=== PATIENT | male | born 1935 | race African-American/Black ===

== ENCOUNTER 2017-01-25 17:23 | Inpatient (IN) | payer MEDICARE, MEDICAID ==
[2017-01-25 21:40] VITALS: BMI 24.0
--- NOTE | 2017-01-25 21:51 | ULT ---
RIGHT UPPER QUADRANT ULTRASOUND 01/25/17 INDICATION: History of jaundice and elevated bilirubin. FINDINGS: There is prominent intrahepatic biliary ductal dilatation which appears slightly more prominent than seen on the CT examination dated 12/07/16. The common bile duct is within normal limits measuring 4.1 mm. The gallbladder appears within normal limits without sonographic Bautista's sign. The visualized a spects of the pancreas remarkable. There are multiple cysts seen involving the right kidney a seen on the comparison CT. No hydronephrosis is evident. There is some free fluid seen within the abdomen an d pelvis. This appears slightly more pronounced than on the comparison CT in November. IMPRESSION: 1. Worsening moderate intrahepatic biliary ductal dilatation. No extrahepatic biliary dilatation is noted. Gallbladder appeared within normal limits. 2. Nonspecific ascites. Slightly more pronounced than seen on the comparison CT in November 27. 3. Multiple right renal cysts. POS: [facility]
[2017-01-25] MEDS ORDERED: Eucerin (Mineral Oil/Petrolatum,White) 30 gm Jar TOP PRN (22:13)
[2017-01-25] MEDS ORDERED: Nitroglycerin 0.4 MG TAB 1 EACH PO PRN (22:13)
[2017-01-25] MEDS ORDERED: hydrALAZINE 20 MG/ML VIAL SLOW IVP PRN (22:13)
[2017-01-25] MEDS ORDERED: Polyethylene Glycol 3350 17 GM Packet PO PRN (22:13)
[2017-01-25] MEDS ORDERED: Insulin Regular 300 UNITS/3 ML VIAL SC PRN ×2 (22:15)
[2017-01-25] MEDS ORDERED: Dextrose 5% in Water 1,000 ML IV PRN (22:15)
[2017-01-25] MEDS ORDERED: Dextrose 50% Abboject 50 ML SYRINGE SLOW IVP PRN (22:15)
[2017-01-25] MEDS ORDERED: Senokot 8.6 MG TAB PO PRN (22:15)
[2017-01-25] MEDS: Melatonin 3 MG TAB PO PRN (22:39)
[2017-01-25] MEDS: Sodium Chloride 0.9% 1,000 ML IV SCH (22:39)
--- NOTE | 2017-01-25 23:13 | HP ---
DATE OF ADMISSION: 01/25/2017 PRIMARY CARE PHYSICIAN: [facility] in [place]. CHIEF COMPLAINT: Generalized itching. HISTORY OF PRESENT ILLNESS: Patient is a 81-year-old male with hypertension, diabetes mellitus type 2, and chronic kidney disease stage 3, presented to [place] [facility] with above complaints. Jeevan e was transferred to this facility for hospital admission. Over the last 2-3 days, the patient developed generalized itching along with discoloration of urine. His urine was dark. He denies any nausea, vomiting, abdominal pain, fever, chills, or diarrhea. He has on and off constipation. He denies any weight loss. He felt cold on and off. He denies any al cohol use. He takes Tylenol on and off. He denies any drug use. No sick contacts or recent travel reported. In the emergency room, his workup was consistent with abnormal LFTs with total bilirubin of 17 with d irect bilirubin greater than 10, alkaline phosphatase 284, AST 73, ALT of 85. He was transferred to this facility for hospital admission. PAST MEDICAL HISTORY: 1. Hypertension 2. Diabetes mellitus type 2. 3. 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 4. Chronic anemia. 5. Left eye blindness. 6. History of gastrointestinal bleeding. 7. Glaucoma. 8. Gout. 9. Hyperlipidemia. PAST SURGICAL HISTORY: 1. Renal biopsy. 2. Cataract surgery. 3. EGD and colonoscopy. ALLERGIES: CODEINE. CURRENT HOME MEDICATIONS: Patient does not remember any of his home medications. SOCIAL HISTORY: He is currently in [place] at his family's place. Currently lives at home with his family. No current use of smoking, alcohol, or drug use. He has a history of alcoholism in the rem ote past. FAMILY HISTORY: Hypertension and CVA in father. Several other family members with hypertension. REVIEW OF SYSTEMS: The following complete review of systems was negative, unless otherwise mentioned in the HPI or below: Constitutional: Weight loss or gain, ability to conduct usual activities. Sk in: Rash, itching. Eyes: Double vision, pain. ENT/Mouth: Nose bleeding, neck stiffness, pain, te nderness. Cardiovascular: Palpitations, dyspnea on exertion, orthopnea. Respiratory: Shortness of breath, wheezing, cough, hemoptysis, fever or night sweats. Gastrointestinal: Poor appetite, abdom inal pain, heartburn, nausea, vomiting, constipation, or diarrhea. Genitourinary: Urgency, frequenc y, dysuria, nocturia. Musculoskeletal: Pain, swelling. Neurologic/Psychiatric: Anxiety, depressio n. Allergy/Immunologic: Skin rash, bleeding tendency. PHYSICAL EXAMINATION: VITAL SIGNS: On ER arrival, temperature 98.3, respirations 20, pulse 71, blood pressure of 130/72 wi th O2 saturation 98% on room air. GENERAL: A 81-year-old male in no apparent distress. HEENT: Atraumatic, normocephalic. Sclerae is icteric. Moist mucous membranes. No oral lesion. NECK: Supple, no JVD, no carotid bruit. LUNGS: Clear to auscultation bilaterally. No wheezing or rales. HEART: S1, S2 present. Regular rate and rhythm. No murmurs, rubs, or gallops appreciated. ABDOMEN: Soft, nontender, bowel sounds present, no rebound, guarding, no costovertebral angle tender ness. EXTREMITIES: No edema or calf tenderness. NEUROLOGIC: Grossly nonfocal, moves all four extremities. PSYCHIATRY: Alert, awake, oriented x3. SKIN: Warm and dry. LYMPH NODES: No palpable lymph nodes in the neck. PERIPHERAL VASCULAR: Radial pulses palpable bilaterally. MUSCULOSKELETAL: No joint swelling or tenderness. LABORATORY FINDINGS: 1. CBC showed WBC of 1.8 with hemoglobin 11.9, hematocrit 38.8, platelet 133. 2. PT of 16, INR 1.3. 3. Chemistries as discussed above. Bicarbonate was 14 with creatinine 2.64, albumin 3.3. 4. Urinalysis was negative for wbc, bacteria. 5. Lipase was 126. 6. Abdominal ultrasound showed nonspecific ascites with multiple right renal cysts with worsening mo derate intrahepatic biliary ductal duration. Gallbladder was normal. IMPRESSION: 1. Abnormal liver function tests. Patient has significantly elevated direct bilirubin of unclear et iology. We will consult Gastroenterology. Avoid acetaminophen. We will check serology for hepatiti s B and C. The patient denies any drug use. 2. Diabetes mellitus type 2. We will add sliding scale. We will monitor. 3. Hypertension. We will start p.r.n. antihypertensives. Patient does not remember any of his home medications. 4. 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 We will monitor. 5. Metabolic acidosis secondary to renal insufficiency. We will monitor. 6. Hypoalbuminemia secondary to nephrotic-range proteinuria. 7. Anemia, chronic. 8. Chronic leukopenia. 9. Code status: FULL CODE. 10. Surrogate decision maker: The patient makes his own decisions with the help of his family. Plan of care was discussed with the patient and the family at the bedside. They stated understanding .
[2017-01-26 04:51] LABS: #Eosinphils 0.1 thou/uL (0.0-0.7); #Lymphocytes 0.3 thou/uL (1.20-3.40); #Monocytes 0.2 thou/uL (0.11-0.59); #Neutrophils 0.9 thou/uL (1.40-6.50); %Lymphocytes 19.3 % (21.0-51.0); %Monocytes 12.1 % (0.0-10.0); Hematocrit 33.1 % (42.0-52.0); Mean Platelet Volume 10.2 fL (7.4-10.4); Red Blood Cell (RBC) Count 3.92 mill/uL (4.70-6.10); White Blood Cell (WBC) Count 1.5 thou/uL (4.8-10.8)
[2017-01-26 05:02] LABS: ALT (SGPT) 63 U/L (8-55); AST (SGOT) 52 U/L (5-34); Alkaline Phosphatase 258 U/L (40-150); Anion Gap 10 mmol/L (10-20); BUN (Urea Nitrogen) 29 mg/dL (8.4-25.7); Bilirubin, Total 15.8 mg/dL (0.2-1.2); CK (CPK) 53 U/L (30-200); Calc. Creatinine Clearance 23 mL/min (70-130); Calcium 8.9 mg/dL (7.8-10.44); Carbon Dioxide 21 mmol/L (23-31); Chloride 108 mmol/L (98-107); Estimated GFR-MDRD 30; Lipase 125 U/L (8-78); Magnesium 2.3 mg/dL (1.6-2.6); Phosphorus 2.9 mg/dL (2.3-4.7); Protein, Total 6.2 g/dL (5.8-8.1)
[2017-01-26 05:16] LABS: Bilirubin, Direct Greater than 10.0 mg/dL (0.1-0.3)
[2017-01-26] MEDS: Sodium Bicarbonate Tab 325 MG TAB PO SCH ×2 (08:20→20:15)
[2017-01-26] MEDS: Famotidine 20 MG TAB PO SCH (08:20)
[2017-01-26] MEDS: Docusate 100 MG CAP PO SCH ×2 (08:21→20:15)
[2017-01-26] MEDS ORDERED: Famotidine 20 MG TAB PO SCH (09:00)
--- NOTE | 2017-01-26 11:58 | CON ---
DATE OF CONSULTATION: 01/26/2017 HISTORY OF PRESENT ILLNESS: The patient is a 81-year-old -[place] gentleman who was in his [facility] state of health until last few days when he noticed his urine becoming dark. He thought possib ly that he was having blood in his urine and came to seek treatment. He has had no abdominal pain, n o diarrhea or constipation, no weight loss, no nausea or vomiting, no other GI complaints. 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 PAST SURGICAL HISTORY: Includes EGD and colonoscopy by Dr. Sawyer, last being in 2002. ALLERGIES: CODEINE. CURRENT MEDICATIONS: Include hydralazine 50 mg p.o. b.i.d., potassium chloride 20 mEq p.o. b.i.d., L asix 40 mg p.o. b.i.d., and Coreg 25 mg p.o. b.i.d. ALLERGIES: CODEINE. SOCIAL HISTORY: Does not smoke or drink. FAMILY HISTORY: Negative for GI or liver disease. REVIEW OF SYSTEMS: CONSTITUTIONAL: No fever or chills. No weight loss. EYES: No blurred vision o r double vision. He is blind in his left eye. ENT: No sore throat or earaches. CARDIOVASCULAR: N o chest pain or palpitation. PULMONARY: No shortness of breath, cough or wheezing. GASTROINTESTINA L: See above. GENITOURINARY: No hematuria or dysuria. MUSCULOSKELETAL: No joint pain or muscle w eakness. SKIN: No rashes. NEUROLOGIC: No numbness or seizure activity. PHYSICAL EXAMINATION: VITAL SIGNS: Temperature 97.3, pulse 72, respiratory rate 16, and blood pressure 164/73. HEENT: Unremarkable except for whitish cornea in the left eye. CHEST: Clear. CARDIOVASCULAR: Regular rate and rhythm. ABDOMEN: Soft and nontender, without organomegaly or masses. RECTAL: Deferred. EXTREMITIES: Normal. NEUROLOGIC: Nonfocal. LABORATORY DATA AND IMAGING: Shows sodium 135, chloride 108, CO2 21, BUN 29, creatinine 2.50, total bilirubin 15.8, AST 52, ALT 63, alkaline phosphatase 258, albumin 3.0, and lipase 125. Hepatitis ser ology is negative. CBC shows white blood cell count of 1.5, hemoglobin 10.7, hematocrit 33.1 with MC V of 84.3, platelet counts 124,000. Patient underwent an abdominal ultrasound and showed worsening m oderate intrahepatic biliary ductal dilatation and no extrahepatic biliary dilatation. Gallbladder w as seen within normal limits. The common bile duct was measured 4.1 mm. Multiple right renal cysts were noted. There is some nonspecific ascites. The patient underwent an abdominal and pelvic CT on 11/27/2016. This was performed without contrast. This showed stable splenomegaly, bilateral pleural effusions, some mild fluid within the pelvis. ASSESSMENT: 1. Obstructive jaundice - patient seems to have intrahepatic biliary dilatation with no extrahepatic biliary dilatation. 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 Less likely would be worsening intrinsic christiano er disease. 2. Pancytopenia. 3. Chronic renal insufficiency. 4. Membranous glomerulonephritis. RECOMMENDATIONS: 1. MRCP. 2. Tumor markers.
--- NOTE | 2017-01-26 15:39 | PDOC.PN ---
- Subjective Encounter Start Date: 01/26/17 Encounter Start Time: 15:37 Subjective: feels better. no abdominal pain/nausea/vomiting - Objective Resuscitation Status: Resuscitation Status FULL:Full Resuscitation MAR Reviewed: Yes Vital Signs & Weight: Vital Signs (12 hours) Temp Pulse Resp BP BP Pulse Ox 01/26/17 11:20 97.3 F L 62 17 164/73 H 98 01/26/17 08:00 97.7 F 61 14 145/87 H 98 01/26/17 04:00 97.8 F 60 18 151/87 H 98 Weight Weight 148 lb 11.2 oz I&O: 01/25/17 01/26/17 01/27/17 06:59 06:59 06:59 Intake Total 800 Balance 800 Result Diagrams: 01/26/17 04:11 01/26/17 04:11 Additional Labs: Accuchecks 01/26/17 01/26/17 10:53 04:46 POC Glucose 84 109 Laboratory Tests 04/12/16 11/01/16 11/01/16 13:42 10:12 10:12 WBC Plt Count 105 L 73 L Creatinine Total Bilirubin AST 28 ALT 27 Alkaline Phosphatase Lipase TSH 3rd Generation 11/27/16 11/27/16 01/25/17 14:19 14:19 15:04 WBC 2.7 L 1.8 L Plt Count 84 L 133 Creatinine 2.82 H Total Bilirubin 0.8 AST 76 H ALT 73 H Alkaline Phosphatase 147 Lipase 107 H TSH 3rd Generation 01/25/17 01/25/17 01/26/17 15:04 15:04 04:11 WBC Plt Count Creatinine 2.64 H 2.50 H Total Bilirubin 17.0 H 15.8 H AST 73 H 52 H ALT 85 H 63 H Alkaline Phosphatase 284 H 258 H Lipase 126 H 125 H TSH 3rd Generation 01/26/17 01/26/17 04:11 04:11 WBC 1.5 L Plt Count 124 L Creatinine Total Bilirubin AST ALT Alkaline Phosphatase Lipase TSH 3rd Generation 1.5370 Phys Exam - Physical Examination Constitutional: NAD thin looking HEENT: PERRLA, moist MMs, sclera anicteric, oral pharynx no lesions Neck: no nodes, no JVD, supple, full ROM Respiratory: no wheezing, no rales, no rhonchi, clear to auscultation bilateral Cardiovascular: RRR, no significant murmur Gastrointestinal: soft, non-tender, no distention, positive bowel sounds Musculoskeletal: no edema, pulses present Neurological: non-focal, normal sensation, moves all 4 limbs Psychiatric: normal affect, A&O x 3 Skin: no rash Dx/Plan (1) Obstructive jaundice Code(s): K83.8 - OTHER SPECIFIED DISEASES OF BILIARY TRACT Status: Acute (2) Pancytopenia Code(s): D61.818 - OTHER PANCYTOPENIA Status: Acute (3) Malnutrition Code(s): E46 - UNSPECIFIED PROTEIN-CALORIE MALNUTRITION Status: Chronic Qualifiers: Malnutrition type: protein-calorie malnutrition Protein-calorie malnutrition severity: moderate Qualified Code(s): E44.0 - Moderate protein- calorie malnutrition (4) HTN (hypertension) Code(s): I10 - ESSENTIAL (PRIMARY) HYPERTENSION Status: Chronic (5) DM2 (diabetes mellitus, type 2) Status: Chronic (6) CKD (chronic kidney disease) Code(s): N18.9 - CHRONIC KIDNEY DISEASE, UNSPECIFIED Status: Chronic Qualifiers: Chronic kidney disease stage: stage 3 (moderate) Qualified Code(s): N18.3 - Chronic kidney disease, stage 3 (moderate) (7) Membranous glomerulonephritis Code(s): N05.2 - UNSP NEPHRITIC SYNDROME W DIFFUSE MEMBRANOUS GLOMRLNEPH Status: Chronic - Plan PT/OT, nursing home social worker, out of bed/ambulate, DVT proph w/SCDs send for AMA,KEMAR etc. will cuco need MRCP /ercp for intrahepatic jaundice -: ? malignanacy.GI recs requested.apprecitae input. -: hemodynamically stable. -: select home meds as below * . Review of Systems - Review of Systems Constitutional: negative: Fever, Chills, Sweats, Weakness, Malaise, Other Respiratory: negative: Cough, Dry, Shortness of Breath, Hemoptysis, SOB with Excertion, Pleuritic Pain, Sputum, Wheezing Cardiovascular: negative: Chest Pain, Palpitations, Orthopnea, Paroxysmal Noc. Dyspnea, Edema, Light Headedness, Other Gastrointestinal: negative: Nausea, Vomiting, Abdominal Pain, Diarrhea, Constipation, Melena, Hematochezia, Other Genitourinary: negative: Dysuria, Frequency, Incontinence, Hematuria, Retention , Other Musculoskeletal: negative: Neck Pain, Shoulder Pain, Arm Pain, Back Pain, Hand Pain, Leg Pain, Foot Pain, Other Neurological: negative: Weakness, Numbness, Incoordination, Change in Speech, Confusion, Seizures, Other - Medications/Allergies Allergies/Adverse Reactions: Allergies Allergy/AdvReac Type Severity Reaction Status Date / Time codeine Allergy itching Verified 03/23/14 20:47 Medications: Current Medications Dextrose/Water (Dextrose 50%) 25 gm SLOW IVP PRN PRN PRN Reason: Hypoglycemia Docusate Sodium (Colace) 100 mg PO BID [facility] Last Admin: 01/26/17 08:21 Dose: 100 mg Famotidine (Pepcid) 20 mg PO DAILY [facility] Last Admin: 01/26/17 08:20 Dose: 20 mg Glucagon (Glucagon) 1 mg IM PRN PRN PRN Reason: Hypoglycemia Hydralazine HCl (Apresoline) 10 mg SLOW IVP Q4H PRN PRN Reason: SBP Greater Than 180 Dextrose/Water (D5w) 1,000 mls @ 0 mls/hr IV .Q0M PRN; As Directed PRN Reason: Hypoglycemia Sodium Chloride (Normal Saline 0.9%) 1,000 mls @ 50 mls/hr IV .Q20H [facility] Stop: 01/27/17 22:16 Last Admin: 01/25/17 22:39 Dose: 1,000 mls Insulin Human Regular (Humulin R) 0 units SC .MILD SLIDING SCALE PRN PRN Reason: Mild Correctional Scale Insulin Human Regular (Humulin R) 0 units SC .BEDTIME SLIDING SC PRN PRN Reason: Bedtime Correctional Scale Melatonin (Melatonin) 3 mg PO HS PRN PRN Reason: Insomnia Last Admin: 01/25/17 22:39 Dose: 3 mg Mineral Oil/White Petrolatum (Eucerin Cream) 0 gm TOP BIDPRN PRN PRN Reason: Dry Skin Nitroglycerin (Nitrostat) 0.4 mg PO Q5MIN PRN PRN Reason: Chest Pain Polyethylene Glycol (Miralax) 17 gm PO DAILY PRN PRN Reason: Constipation Senna (Senokot) 2 tab PO HSPRN PRN PRN Reason: Constipation Sodium Bicarbonate (Bicarbonate, Sodium) 650 mg PO BID [facility] Last Admin: 01/26/17 08:20 Dose: 650 mg Sodium Chloride (Flush - Normal Saline) 10 ml IVF PRN PRN PRN Reason: Saline Flush
[2017-01-26] MEDS: Sodium Chloride 0.9% 1,000 ML IV SCH (16:41)
--- NOTE | 2017-01-26 18:08 | MRI ---
MR OF THE ABDOMEN WITHOUT IV CONTRAST: Indication: Prominent intrahepatic biliary ductal dilatation with abdominal pain and elevated LFTs. IMPRESSION: There is a T2 isointense, T1 hypointense mass centered within the caudate lobe extending into the tyron tral aspect of the right hepatic lobe, best seen on Image 15 of series 15, and Image 14 of Series 14 measuring 3.1 x 5.3 cm, suspicious for a Klatskin type tumor. This is causing severe truncation of th e intrahepatic biliary confluence and intrahepatic biliary ductal dilatation. The visualized common b ile duct is of normal caliber. The main pancreatic duct is upper limits of normal. There is prominent splenomegaly. There is bilateral renal cysts. There is moderate ascites. No pathologically enlarged lymph nodes are evident. There is prominent gallbladder wall thickening. The gallbladder is decompres sed, however. There are a moderate right and small left pleural effusions. IMPRESSION: 1. Irregular, T2 isointense T1 hypointense mass involving the caudate lobe and central aspect of the right hepatic lobe causing severe obstruction of the confluence of the right and left intrahepatic bi liary ducts suspicious for a Klatskin tumor. 2. Moderate ascites. 3. Splenomegaly. 4. Bilateral renal cysts. 5. Moderate right and small left pleural effusion. POS: [facility]
[2017-01-26] MEDS: Melatonin 3 MG TAB PO PRN (20:15)
[2017-01-27 05:44] LABS: #Eosinphils 0.1 thou/uL (0.0-0.7); #Lymphocytes 0.4 thou/uL (1.20-3.40); #Monocytes 0.2 thou/uL (0.11-0.59); #Neutrophils 0.7 thou/uL (1.40-6.50); %Basophils 1.8 % (0.0-1.0); %Eosinophils 5.7 % (0.0-10.0); %Lymphocytes 26.5 % (21.0-51.0); Hematocrit 34.6 % (42.0-52.0); Mean Platelet Volume 10.6 fL (7.4-10.4); Red Blood Cell (RBC) Count 4.09 mill/uL (4.70-6.10); White Blood Cell (WBC) Count 1.3 thou/uL (4.8-10.8)
[2017-01-27 05:52] LABS: ALT (SGPT) 56 U/L (8-55); AST (SGOT) 51 U/L (5-34); Alkaline Phosphatase 251 U/L (40-150); Anion Gap 10 mmol/L (10-20); BUN (Urea Nitrogen) 24 mg/dL (8.4-25.7); Bilirubin, Total 17.3 mg/dL (0.2-1.2); Calc. Creatinine Clearance 28 mL/min (70-130); Calcium 9.2 mg/dL (7.8-10.44); Carbon Dioxide 22 mmol/L (23-31); Chloride 109 mmol/L (98-107); Estimated GFR-MDRD 38; Protein, Total 6.2 g/dL (5.8-8.1)
[2017-01-27 05:54] LABS: Bilirubin, Direct Greater than 10.0 mg/dL (0.1-0.3)
[2017-01-27] MEDS: Docusate 100 MG CAP PO SCH (08:24)
[2017-01-27] MEDS: Sodium Bicarbonate Tab 325 MG TAB PO SCH ×2 (08:25→22:26)
[2017-01-27] MEDS: Famotidine 20 MG TAB PO SCH (08:25)
[2017-01-27] MEDS: Sodium Chloride 0.9% 1,000 ML IV SCH (14:30)
--- NOTE | 2017-01-27 15:46 | PDOC.PN ---
- Subjective Encounter Start Date: 01/27/17 Encounter Start Time: 15:44 Subjective: feels very good. no abdominal pain/nausea/vomiting - Objective Resuscitation Status: Resuscitation Status FULL:Full Resuscitation MAR Reviewed: Yes Vital Signs & Weight: Vital Signs (12 hours) Temp Pulse Resp BP Pulse Ox 01/27/17 11:16 97.4 F L 61 20 162/89 H 99 01/27/17 08:00 97.7 F 55 L 18 162/89 H 98 01/27/17 04:39 97.8 F 59 L 14 171/90 H 98 Weight Weight 148 lb 11.2 oz I&O: 01/26/17 01/27/17 01/28/17 06:59 06:59 06:59 Intake Total 800 3550 Balance 800 3550 Result Diagrams: 01/27/17 04:51 01/27/17 04:51 Additional Labs: Accuchecks 01/27/17 01/27/17 01/26/17 11:16 05:09 23:56 POC Glucose 67 L 79 87 01/26/17 15:47 POC Glucose 76 Laboratory Tests 11/01/16 11/27/16 01/25/17 10:12 14:19 15:04 Creatinine 2.60 H 2.82 H 2.64 H Total Bilirubin Alkaline Phosphatase Hepatitis A IgM Ab Hep Bs Antigen Hep B Core IgM Ab Hepatitis C Antibody 01/26/17 01/26/17 01/27/17 04:11 04:11 04:51 Creatinine 2.50 H 2.07 H Total Bilirubin 15.8 H 17.3 H Alkaline Phosphatase 258 H 251 H Hepatitis A IgM Ab Non-Reactive Hep Bs Antigen Non-Reactive Hep B Core IgM Ab Non-Reactive Hepatitis C Antibody Non-Reactive Radiology Reviewed by me: Yes (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) Phys Exam - Physical Examination Constitutional: NAD HEENT: PERRLA, moist MMs, sclera anicteric, oral pharynx no lesions Neck: no nodes, no JVD, supple, full ROM Respiratory: no wheezing, no rales, no rhonchi, clear to auscultation bilateral Cardiovascular: RRR, no significant murmur Gastrointestinal: soft, non-tender, no distention, positive bowel sounds Musculoskeletal: no edema, pulses present Neurological: non-focal, normal sensation, moves all 4 limbs Psychiatric: normal affect, A&O x 3 Skin: no rash Dx/Plan (1) Obstructive jaundice Code(s): K83.8 - OTHER SPECIFIED DISEASES OF BILIARY TRACT Status: Acute (2) Pancytopenia Code(s): D61.818 - OTHER PANCYTOPENIA Status: Acute (3) Malnutrition Code(s): E46 - UNSPECIFIED PROTEIN-CALORIE MALNUTRITION Status: Chronic Qualifiers: Malnutrition type: protein-calorie malnutrition Protein-calorie malnutrition severity: moderate Qualified Code(s): E44.0 - Moderate protein- calorie malnutrition (4) HTN (hypertension) Code(s): I10 - ESSENTIAL (PRIMARY) HYPERTENSION Status: Chronic (5) DM2 (diabetes mellitus, type 2) Status: Chronic (6) CKD (chronic kidney disease) Code(s): N18.9 - CHRONIC KIDNEY DISEASE, UNSPECIFIED Status: Chronic Qualifiers: Chronic kidney disease stage: stage 3 (moderate) Qualified Code(s): N18.3 - Chronic kidney disease, stage 3 (moderate) (7) Membranous glomerulonephritis Code(s): N05.2 - UNSP NEPHRITIC SYNDROME W DIFFUSE MEMBRANOUS GLOMRLNEPH Status: Chronic (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 -: Gi recs pending for MRI findings. -: restart home meds.Hemodynamically stable. -: AM labs * . Review of Systems - Review of Systems Constitutional: negative: Fever, Chills, Sweats, Weakness, Malaise, Other Respiratory: negative: Cough, Dry, Shortness of Breath, Hemoptysis, SOB with Excertion, Pleuritic Pain, Sputum, Wheezing Cardiovascular: negative: Chest Pain, Palpitations, Orthopnea, Paroxysmal Noc. Dyspnea, Edema, Light Headedness, Other Gastrointestinal: negative: Nausea, Vomiting, Abdominal Pain, Diarrhea, Constipation, Melena, Hematochezia, Other Genitourinary: negative: Dysuria, Frequency, Incontinence, Hematuria, Retention , Other Musculoskeletal: negative: Neck Pain, Shoulder Pain, Arm Pain, Back Pain, Hand Pain, Leg Pain, Foot Pain, Other Neurological: negative: Weakness, Numbness, Incoordination, Change in Speech, Confusion, Seizures, Other - Medications/Allergies Allergies/Adverse Reactions: Allergies Allergy/AdvReac Type Severity Reaction Status Date / Time codeine Allergy itching Verified 03/23/14 20:47 Medications: Current Medications Clonidine (Catapres) 0.1 mg PO BID [facility] Dextrose/Water (Dextrose 50%) 25 gm SLOW IVP PRN PRN PRN Reason: Hypoglycemia Docusate Sodium (Colace) 100 mg PO BID [facility] Last Admin: 01/27/17 08:24 Dose: 100 mg Docusate Sodium (Colace) 100 mg PO DAILY [facility] Famotidine (Pepcid) 20 mg PO DAILY [facility] Last Admin: 01/27/17 08:25 Dose: 20 mg Glucagon (Glucagon) 1 mg IM PRN PRN PRN Reason: Hypoglycemia Hydralazine HCl (Apresoline) 10 mg SLOW IVP Q4H PRN PRN Reason: SBP Greater Than 180 Dextrose/Water (D5w) 1,000 mls @ 0 mls/hr IV .Q0M PRN; As Directed PRN Reason: Hypoglycemia Sodium Chloride (Normal Saline 0.9%) 1,000 mls @ 50 mls/hr IV .Q20H [facility] Stop: 01/27/17 22:16 Last Admin: 01/27/17 14:30 Dose: 1,000 mls Insulin Human Regular (Humulin R) 0 units SC .MILD SLIDING SCALE PRN PRN Reason: Mild Correctional Scale Insulin Human Regular (Humulin R) 0 units SC .BEDTIME SLIDING SC PRN PRN Reason: Bedtime Correctional Scale Melatonin (Melatonin) 3 mg PO HS PRN PRN Reason: Insomnia Last Admin: 01/26/17 20:15 Dose: 3 mg Mineral Oil/White Petrolatum (Eucerin Cream) 0 gm TOP BIDPRN PRN PRN Reason: Dry Skin Nitroglycerin (Nitrostat) 0.4 mg PO Q5MIN PRN PRN Reason: Chest Pain Non-Formulary Medication (Lactulose 10 Gm/15ml Oral Tangela) 15 ml PO DAILY [facility] Polyethylene Glycol (Miralax) 17 gm PO DAILY PRN PRN Reason: Constipation Senna (Senokot) 2 tab PO HSPRN PRN PRN Reason: Constipation Sodium Bicarbonate (Bicarbonate, Sodium) 650 mg PO BID [facility] Last Admin: 01/27/17 08:25 Dose: 650 mg Sodium Chloride (Flush - Normal Saline) 10 ml IVF PRN PRN PRN Reason: Saline Flush
[2017-01-27] MEDS ORDERED: Ondansetron HCl/PF 4 MG/2 ML Vial IVP PRN (21:16)
[2017-01-27] MEDS: cloNIDine 0.1 MG TAB PO SCH (22:25)
--- NOTE | 2017-01-28 05:58 | PRG ---
DATE OF SERVICE: 01/27/2017 SUBJECTIVE: This is a 81-year-old male admitted to the hospital with abdominal pain, nausea, and vom iting. The patient's abdominal sonogram, which revealed dilated common intrahepatic bile ducts. The CBD appears normal. He was seen by Dr. Clovis Cortez and it was felt that patient could have possibly Klatskin tumor and he had an MRCP done today. The MRCP does show dilation of the intrahepatic ducts and also a mass at the bifurcation of the common bile duct. It appears that the patient most likely has a lesion at the bifurcation of the common bile duct. OBJECTIVE: GENERAL: The patient is afebrile. VITAL SIGNS: Stable. His pulse is 61, blood pressure 162/89. HEENT: He is icteric. CARDIOVASCULAR: First and second heart sounds normal. LUNGS: Clear to auscultation. ABDOMEN: Soft to palpate. He is minimally tender over the left upper abdomen. There is no rebound or guarding. LABORATORY DATA: From today, WBC 1300, hemoglobin 11.1, hematocrit 34.6, MCV 84.7. Chemistries show s bilirubin 17.3, AST is 51, ALT 56, alkaline phosphatase 251. CLINICAL IMPRESSION: Obstructive jaundice and MRCP does show a lesion in the hepatic hilum. RECOMMENDATION: I believe he probably needs to be transferred to a tertiary care center for further evaluation and treatment. Could also obtain here locally.
[2017-01-28 06:21] LABS: #Lymphocytes 0.4 thou/uL (1.20-3.40); #Monocytes 0.2 thou/uL (0.11-0.59); #Neutrophils 0.9 thou/uL (1.40-6.50); %Eosinophils 2.9 % (0.0-10.0); %Lymphocytes 23.6 % (21.0-51.0); %Monocytes 11.9 % (0.0-10.0); Hematocrit 32.1 % (42.0-52.0); Mean Platelet Volume 10.7 fL (7.4-10.4); Red Blood Cell (RBC) Count 3.78 mill/uL (4.70-6.10); White Blood Cell (WBC) Count 1.5 thou/uL (4.8-10.8)
[2017-01-28 06:24] LABS: Anion Gap 11 mmol/L (10-20); BUN (Urea Nitrogen) 26 mg/dL (8.4-25.7); Calc. Creatinine Clearance 28 mL/min (70-130); Carbon Dioxide 20 mmol/L (23-31); Chloride 109 mmol/L (98-107); Estimated GFR-MDRD 38
[2017-01-28] MEDS: Famotidine 20 MG TAB PO SCH (08:34)
[2017-01-28] MEDS: Docusate 100 MG CAP PO SCH (08:34)
[2017-01-28] MEDS: cloNIDine 0.1 MG TAB PO SCH ×2 (08:36→20:49)
[2017-01-28] MEDS: Sodium Bicarbonate Tab 325 MG TAB PO SCH ×2 (08:36→20:49)
--- NOTE | 2017-01-28 13:25 | PDOC.PN ---
- Subjective Encounter Start Date: 01/28/17 Encounter Start Time: 13:18 Subjective: feels well. no abd pain,nausea or vomiting - Objective Resuscitation Status: Resuscitation Status FULL:Full Resuscitation MAR Reviewed: Yes Vital Signs & Weight: Vital Signs (12 hours) Temp Pulse Resp BP Pulse Ox 01/28/17 11:23 97.4 F L 55 L 20 145/81 H 99 01/28/17 08:00 97.6 F 54 L 20 155/92 H 98 01/28/17 04:00 97.5 F L 57 L 18 150/87 H 98 Weight Weight 148 lb 11.2 oz I&O: 01/27/17 01/28/17 01/29/17 06:59 06:59 06:59 Intake Total 3550 550 Balance 3550 550 Result Diagrams: 01/28/17 05:13 01/28/17 05:13 Additional Labs: Accuchecks 01/28/17 01/28/17 01/27/17 11:24 04:30 19:23 POC Glucose 100 95 112 H 01/27/17 16:56 POC Glucose 94 Phys Exam - Physical Examination Constitutional: NAD HEENT: PERRLA, moist MMs, oral pharynx no lesions jaundice,icterus Neck: no nodes, no JVD, supple, full ROM Respiratory: no wheezing, no rales, no rhonchi, clear to auscultation bilateral Cardiovascular: RRR, no significant murmur, no rub, gallop Gastrointestinal: soft, non-tender, no distention, positive bowel sounds Musculoskeletal: no edema, pulses present Neurological: non-focal, normal sensation, moves all 4 limbs Psychiatric: normal affect, A&O x 3 Skin: no rash Dx/Plan (1) Obstructive jaundice Code(s): K83.8 - OTHER SPECIFIED DISEASES OF BILIARY TRACT Status: Acute (2) Pancytopenia Code(s): D61.818 - OTHER PANCYTOPENIA Status: Acute (3) Malnutrition Code(s): E46 - UNSPECIFIED PROTEIN-CALORIE MALNUTRITION Status: Chronic Qualifiers: Malnutrition type: protein-calorie malnutrition Protein-calorie malnutrition severity: moderate Qualified Code(s): E44.0 - Moderate protein- calorie malnutrition (4) HTN (hypertension) Code(s): I10 - ESSENTIAL (PRIMARY) HYPERTENSION Status: Chronic (5) DM2 (diabetes mellitus, type 2) Status: Chronic (6) CKD (chronic kidney disease) Code(s): N18.9 - CHRONIC KIDNEY DISEASE, UNSPECIFIED Status: Chronic Qualifiers: Chronic kidney disease stage: stage 3 (moderate) Qualified Code(s): N18.3 - Chronic kidney disease, stage 3 (moderate) (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 orozco.? Pt needs EUS.sent records to [facility] -: discussed w GI doctor @ [facility].Lesion not accessible by EUS. -: discussed again w .will need to involve GS,Oncology,IR etc -: Will arrange.may need some sort of palliative steneting -: pt remains hemodynamically stable * . Review of Systems - Review of Systems Constitutional: negative: Fever, Chills, Sweats, Weakness, Malaise, Other ENT: negative: Ear Pain, Ear Discharge, Nose Pain, Nose Discharge, Nose Congestion, Mouth Pain, Mouth Swelling, Throat Pain, Throat Swelling, Other Respiratory: negative: Cough, Dry, Shortness of Breath, Hemoptysis, SOB with Excertion, Pleuritic Pain, Sputum, Wheezing Cardiovascular: negative: Chest Pain, Palpitations, Orthopnea, Paroxysmal Noc. Dyspnea, Edema, Light Headedness, Other Gastrointestinal: negative: Nausea, Vomiting, Abdominal Pain, Diarrhea, Constipation, Melena, Hematochezia, Other Genitourinary: negative: Dysuria, Frequency, Incontinence, Hematuria, Retention , Other Musculoskeletal: negative: Neck Pain, Shoulder Pain, Arm Pain, Back Pain, Hand Pain, Leg Pain, Foot Pain, Other Neurological: negative: Weakness, Numbness, Incoordination, Change in Speech, Confusion, Seizures, Other - Medications/Allergies Allergies/Adverse Reactions: Allergies Allergy/AdvReac Type Severity Reaction Status Date / Time codeine Allergy itching Verified 03/23/14 20:47 Medications: Current Medications Clonidine (Catapres) 0.1 mg PO BID [facility] Last Admin: 01/28/17 08:36 Dose: 0.1 mg Dextrose/Water (Dextrose 50%) 25 gm SLOW IVP PRN PRN PRN Reason: Hypoglycemia Docusate Sodium (Colace) 100 mg PO DAILY [facility] Last Admin: 01/28/17 08:34 Dose: 100 mg Famotidine (Pepcid) 20 mg PO DAILY [facility] Last Admin: 01/28/17 08:34 Dose: 20 mg Glucagon (Glucagon) 1 mg IM PRN PRN PRN Reason: Hypoglycemia Hydralazine HCl (Apresoline) 10 mg SLOW IVP Q4H PRN PRN Reason: SBP Greater Than 180 Dextrose/Water (D5w) 1,000 mls @ 0 mls/hr IV .Q0M PRN; As Directed PRN Reason: Hypoglycemia Insulin Human Regular (Humulin R) 0 units SC .MILD SLIDING SCALE PRN PRN Reason: Mild Correctional Scale Insulin Human Regular (Humulin R) 0 units SC .BEDTIME SLIDING SC PRN PRN Reason: Bedtime Correctional Scale Lactulose (Lactulose) 10 gm PO DAILY [facility] Last Admin: 01/28/17 08:36 Dose: 10 gm Melatonin (Melatonin) 3 mg PO HS PRN PRN Reason: Insomnia Last Admin: 01/26/17 20:15 Dose: 3 mg Mineral Oil/White Petrolatum (Eucerin Cream) 0 gm TOP BIDPRN PRN PRN Reason: Dry Skin Nitroglycerin (Nitrostat) 0.4 mg PO Q5MIN PRN PRN Reason: Chest Pain Ondansetron HCl (Zofran) 4 mg IVP Q6H PRN PRN Reason: Nausea/Vomiting Last Admin: 01/27/17 22:24 Dose: 4 mg Polyethylene Glycol (Miralax) 17 gm PO DAILY PRN PRN Reason: Constipation Senna (Senokot) 2 tab PO HSPRN PRN PRN Reason: Constipation Sodium Bicarbonate (Bicarbonate, Sodium) 650 mg PO BID [facility] Last Admin: 01/28/17 08:36 Dose: 650 mg Sodium Chloride (Flush - Normal Saline) 10 ml IVF PRN PRN PRN Reason: Saline Flush
--- NOTE | 2017-01-28 20:27 | CON ---
DATE OF CONSULTATION: 01/28/2017 REASON FOR CONSULTATION: Possible cholangiocarcinoma. HISTORY OF PRESENT ILLNESS: Mr. Myles is a pleasant 81-year-old - [place]er male who presented to the emergency room for evaluation after complaints of dark urine and itching. He had no abdominal discomfort, nausea, vomiting, diarrhea, constipation, no early satiety or weight loss. He had chemistries drawn which showed a total bilirubin of 17, AST is 73, ALT is 85 and alkaline phosphatase is 284. He was transferred to this facility and had an abdominal ultrasound, which showed intrahepatic biliary ductal dilatation. He then underwent an abdominal MRI, showed a mass centered within the caudate lobe of the liver extending into the central aspect of the right hepatic lobe. It was causing intrahepatic biliary ductal dilatation. The common bile duct and the main pancreatic duct were normal. There was splenomegaly, moderate ascites. The gallbladder was decompressed with a prominent wall thickening. Dr. Cortez saw the patient, recommended MRCP; however, they were not able to reach the mass due to its location. Matt Roque was contacted for a possible esophageal ultrasound guided biopsy; however, they declined as they felt that they were unable to obtain it with this procedure. We were asked to see the patient for our recommendations. The patient had an abdominal and pelvis CT on 11/27/2016 which showed a stable splenomegaly, but no evidence of intrahepatic biliary dilatation. PAST MEDICAL HISTORY: 1. Hypertension. 2. Diabetes mellitus 2. 3. Chronic kidney disease, stage III. 4. Chronic pancytopenia. 5. Left eye blindness. 6. Gastrointestinal bleed. 7. Glaucoma. 8. Gout. 9. Hyperlipidemia. PAST SURGICAL HISTORY: 1. Renal biopsy. 2. Cataract surgery. ALLERGIES: To CODEINE. HOME MEDICATIONS: 1. Clonidine 0.1 mg b.i.d. 2. Colace daily. 3. Lactulose daily. FAMILY HISTORY: No known history of liver or gallbladder cancer. SOCIAL HISTORY: He is , lives with his in [place]. No alcohol, tobacco or illicit drug use. REVIEW OF SYSTEMS: A 12 point review of systems is negative except for noted in HPI. PHYSICAL EXAMINATION: VITAL SIGNS: Temperature is 97.4, pulse is 55, respiratory rate 20, blood pressure is 145/81, 99% on room air. GENERAL: Well-developed, well-nourished male in no acute distress. HEENT: Normocephalic, atraumatic. Pupils are equal and reactive to light. Sclerae are icteric. NECK: Supple without JVD or mass. CARDIOVASCULAR: Regular rate and rhythm. LUNGS: Clear to auscultation. ABDOMEN: Mildly distended, nontender to palpation. Bowel sounds are positive. EXTREMITIES: No clubbing, cyanosis or edema. SKIN: No rash. HEMATOLOGIC: No petechia or purpura. NEUROLOGIC: Nonfocal. The patient is alert and oriented and appropriate. PERTINENT LABORATORY AND X-RAYS: Current WBCs are 1.5, hemoglobin 10.4, hematocrit 32.1, platelet count 115,000, 62% neutrophils, 24% lymphocytes, 12% monocytes. PT 16, INR 1.3, PTT is 34.0. Sodium 136, potassium 4.3, chloride 109, CO2 is 20, BUN is 26, creatinine is 2.05. GFR is 38, calcium is 9, total bilirubin is 17.3, direct bilirubin greater than 10, AST is 51, ALT 56, alkaline phosphatase is 251. Serum total protein 6.2, albumin 2.9, lipase is 125. Urine is negative for bacteria. Hepatitis panel is negative. Radiology per HPI. ASSESSMENT: 1. Obstructive jaundice. 2. Ascites. 3. Possible cholangiocarcinoma. 4. Chronic pancytopenia. 5. Chronic splenomegaly. DISCUSSION: Due to the location of this mass, it is not possible to place a stent or have brushings for tissue biopsy. The case was discussed in detail with Dr. Hardin who discussed with Dr. Porter in Radiology. He does have a moderate amount of ascites. The hope is that we can perform a paracentesis and have a diagnosis from the cytology and go from there. That order has been placed. His pancytopenia is stable. No further treatment needed for that at this time. Prognosis is poor. Thank you for the consult. We will follow him closely. KESHAV
[2017-01-29 06:12] LABS: Anion Gap 11 mmol/L (10-20); BUN (Urea Nitrogen) 22 mg/dL (8.4-25.7); Calc. Creatinine Clearance 28 mL/min (70-130); Carbon Dioxide 21 mmol/L (23-31); Chloride 106 mmol/L (98-107); Estimated GFR-MDRD 39
[2017-01-29] MEDS ORDERED: Lidocaine 1% MPF 2 ML VIAL ONE (09:54)
--- NOTE | 2017-01-29 10:35 | ULT ---
ULTRASOUND GUIDED DIAGNOSTIC PARACENTESIS: INDICATION: Concern for cholangiocarcinoma. TECHNIQUE: Informed consent was obtained. Preprocedure ultrasound demonstrated a collection within the right up per quadrant of the abdomen which was accessible percutaneously. This site was prepped and draped in the usual sterile fashion. Buffered 1% Lidocaine was administered to the overlying subcutaneous tis sues. Under ultrasound guidance, a 5 Mauritian Yueh catheter was guided down into the collection. Ther e was removal of 60 cc of normal-appearing peritoneal fluid. The patient tolerated the procedure wit hout difficulty. IMPRESSION: Successful diagnostic paracentesis removal of 60 cc of peritoneal fluid. POS: [facility]
[2017-01-29] MEDS: Famotidine 20 MG TAB PO SCH (10:51)
[2017-01-29] MEDS: cloNIDine 0.1 MG TAB PO SCH ×2 (10:52→20:37)
[2017-01-29] MEDS: Docusate 100 MG CAP PO SCH (10:52)
[2017-01-29] MEDS: Sodium Bicarbonate Tab 325 MG TAB PO SCH ×2 (10:52→20:37)
[2017-01-29 11:29] LABS: BF Reference Range Comment Note:
[2017-01-29 13:07] LABS: BF Color Yellow
[2017-01-29 13:42] LABS: Number Cells Counted-Fluids 100
--- NOTE | 2017-01-29 14:58 | PDOC.PN ---
- Subjective Encounter Start Date: 01/29/17 Encounter Start Time: 09:40 Pt seen for followup re: obstructive jaundice. Feels better. Denies nausea, vomiting, fevers or chills. - Objective Resuscitation Status: Resuscitation Status FULL:Full Resuscitation MAR Reviewed: Yes Vital Signs & Weight: Vital Signs (12 hours) Temp Pulse Resp BP BP BP Pulse Ox 01/29/17 11:33 97.2 F L 56 L 18 144/88 H 100 01/29/17 10:52 161/89 H 01/29/17 10:27 97.6 F 56 L 16 161/89 H 99 01/29/17 08:00 97.6 F 53 L 22 H 144/82 H 99 01/29/17 04:00 98.0 F 56 L 20 142/82 H 98 Weight Weight 148 lb 11.2 oz I&O: 01/28/17 01/29/17 01/30/17 06:59 06:59 06:59 Intake Total 550 1040 Balance 550 1040 Result Diagrams: 01/28/17 05:13 01/29/17 04:53 Additional Labs: Accuchecks 01/29/17 01/29/17 01/28/17 11:32 04:14 19:01 POC Glucose 77 84 105 01/28/17 16:23 POC Glucose 112 H Phys Exam - Physical Examination Constitutional: NAD HEENT: moist MMs, oral pharynx no lesions Scleral icterus+ Neck: no JVD Respiratory: clear to auscultation bilateral Cardiovascular: RRR Gastrointestinal: soft Musculoskeletal: pulses present Neurological: moves all 4 limbs Psychiatric: normal affect Skin: no rash Dx/Plan (1) Obstructive jaundice Code(s): K83.8 - OTHER SPECIFIED DISEASES OF BILIARY TRACT Status: Acute (2) Pancytopenia Code(s): D61.818 - OTHER PANCYTOPENIA Status: Acute (3) CKD (chronic kidney disease) Code(s): N18.9 - CHRONIC KIDNEY DISEASE, UNSPECIFIED Status: Chronic Qualifiers: Chronic kidney disease stage: stage 3 (moderate) Qualified Code(s): N18.3 - Chronic kidney disease, stage 3 (moderate) (4) DM2 (diabetes mellitus, type 2) Status: Chronic (5) HTN (hypertension) Code(s): I10 - ESSENTIAL (PRIMARY) HYPERTENSION Status: Chronic (6) Membranous glomerulonephritis Code(s): N05.2 - UNSP NEPHRITIC SYNDROME W DIFFUSE MEMBRANOUS GLOMRLNEPH Status: Chronic (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 Pt had paracentesis, await cytology report. Review of Systems - Review of Systems Respiratory: negative: Cough, Dry, Shortness of Breath, Hemoptysis, SOB with Excertion, Pleuritic Pain, Sputum, Wheezing Cardiovascular: negative: Chest Pain, Palpitations, Orthopnea, Paroxysmal Noc. Dyspnea, Edema, Light Headedness Gastrointestinal: negative: Nausea, Vomiting, Abdominal Pain, Diarrhea, Constipation, Melena, Hematochezia - Medications/Allergies Allergies/Adverse Reactions: Allergies Allergy/AdvReac Type Severity Reaction Status Date / Time codeine Allergy itching Verified 03/23/14 20:47 Medications: Current Medications Clonidine (Catapres) 0.1 mg PO BID [facility] Last Admin: 01/29/17 10:52 Dose: 0.1 mg Dextrose/Water (Dextrose 50%) 25 gm SLOW IVP PRN PRN PRN Reason: Hypoglycemia Docusate Sodium (Colace) 100 mg PO DAILY [facility] Last Admin: 01/29/17 10:52 Dose: 100 mg Famotidine (Pepcid) 20 mg PO DAILY [facility] Last Admin: 01/29/17 10:51 Dose: 20 mg Glucagon (Glucagon) 1 mg IM PRN PRN PRN Reason: Hypoglycemia Hydralazine HCl (Apresoline) 10 mg SLOW IVP Q4H PRN PRN Reason: SBP Greater Than 180 Dextrose/Water (D5w) 1,000 mls @ 0 mls/hr IV .Q0M PRN; As Directed PRN Reason: Hypoglycemia Insulin Human Regular (Humulin R) 0 units SC .MILD SLIDING SCALE PRN PRN Reason: Mild Correctional Scale Insulin Human Regular (Humulin R) 0 units SC .BEDTIME SLIDING SC PRN PRN Reason: Bedtime Correctional Scale Lactulose (Lactulose) 10 gm PO DAILY [facility] Last Admin: 01/29/17 10:51 Dose: 10 gm Melatonin (Melatonin) 3 mg PO HS PRN PRN Reason: Insomnia Last Admin: 01/26/17 20:15 Dose: 3 mg Mineral Oil/White Petrolatum (Eucerin Cream) 0 gm TOP BIDPRN PRN PRN Reason: Dry Skin Nitroglycerin (Nitrostat) 0.4 mg PO Q5MIN PRN PRN Reason: Chest Pain Ondansetron HCl (Zofran) 4 mg IVP Q6H PRN PRN Reason: Nausea/Vomiting Last Admin: 01/27/17 22:24 Dose: 4 mg Polyethylene Glycol (Miralax) 17 gm PO DAILY PRN PRN Reason: Constipation Senna (Senokot) 2 tab PO HSPRN PRN PRN Reason: Constipation Sodium Bicarbonate (Bicarbonate, Sodium) 650 mg PO BID [facility] Last Admin: 01/29/17 10:52 Dose: 650 mg Sodium Chloride (Flush - Normal Saline) 10 ml IVF PRN PRN PRN Reason: Saline Flush
[2017-01-30] MEDS: Famotidine 20 MG TAB PO SCH (08:03)
[2017-01-30] MEDS: Docusate 100 MG CAP PO SCH (08:03)
[2017-01-30] MEDS: Sodium Bicarbonate Tab 325 MG TAB PO SCH (08:04)
[2017-01-30] MEDS: cloNIDine 0.1 MG TAB PO SCH (08:04)
[2017-01-30] MEDS ORDERED: Amlodipine 5 MG TAB PO SCH (15:30)
[2017-01-30 16:31] VITALS: BP 165/94; TEMP 97.5
--- NOTE | 2017-01-30 19:22 | DIS ---
DATE OF ADMISSION: 01/25/2017 DATE OF DISCHARGE: 01/30/2017 PRIMARY CARE PROVIDER: Charlie Hale M.D. DISCHARGE DIAGNOSES: 1. Obstructive jaundice. 2. MRI of the abdomen on 01/26/2017 showing irregular T2 isointense, T1 hypointense mass involving t he caudate lobe and central aspect of the right hepatic lobe causing severe obstruction of the conflu ence of the right and left intrahepatic biliary ducts suspicious for a [place] tumor, moderate ascit es, splenomegaly, bilateral renal cyst, and moderate right and small left pleural effusion. 3. Ultrasound of the abdomen on 01/25/2017 showing nonspecific ascites and moderate intrahepatic lorraine iary ductal dilatation. 4. Cytology of ascitic fluid reported as adenocarcinoma. CONDITION OF PATIENT AT THE TIME OF DISCHARGE: Stable. I assessed Mr. Myles on the day of dischar . He denies any chest pain or shortness of breath. Vital signs are stable. S1 and S2 are heard, regular. Lungs are clear to auscultation bilaterally. CONSULTATIONS DURING THIS HOSPITALIZATION: Gastroenterology, Dr. Clovis Cortez and Oncology, Dr. Aristeo Hardin. HOSPITAL COURSE: Mr. Myles is a pleasant 81-year-old gentleman who was admitted to [facility] on 01/25/2017 for obstructive jaundice. MRI of the abdomen showed the findings as described above. Gastroenterology service was consulted. Because of the location of the mass, it w as not possible to place a stent or having brushings for tissue biopsy. Therefore, he underwent para centesis so that cytology can be used for diagnosis. His cytology was reported as adenocarcinoma on 01/30/2017. Arrangements are being made for followup with Medical Oncology and Radiation Oncology as outpatient. He is being discharged home in a stable condition. DISCHARGE MEDICATIONS: Clonidine 0.1 mg 2 times a day, Colace 100 mg daily, lactulose 15 mL daily. Many thanks for allowing me to participate in your patient's care. Please feel free to contact me wi th any questions or concerns. DISCHARGE DESTINATION: Home. TOTAL AMOUNT OF TIME SPENT COORDINATING THIS DISCHARGE: 33 minutes. ADDENDUM: Mr. Myles's blood pressure was elevated during this hospitalization. He has also been started on a mlodipine 5 mg daily.
--- NOTE | 2017-01-30 23:19 | CON ---
DATE OF CONSULTATION: 01/30/2017 REASON FOR CONSULTATION: Mr. 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 I was asked to see him to discuss his options with radiation the rapy. HISTORY OF PRESENT ILLNESS: Mr. You was seen in the emergency room because his urine has turned dark. He thought he had blood in urine. He is also having generalized itching. He was found to hav e total bilirubin of 17 with elevated liver function tests, and therefore he was admitted to [facility] for workup and evaluation. He was then seen back Gastroenterology and had an MRI of the abdomen. This suggested a possible bile duct cancer, which had some intrahepatic extension. There were promi nent ascites. Unfortunately, stent could not be placed and the lesion could not be reached by ERCP f or a biopsy. This was discussed with Gastroenterology in [place] and apparently was felt that the les ion would not be reachable by endoscopic ultrasound also. The patient, therefore, underwent paracent esis of his ascites. Cytology returned today as adenocarcinoma. He does have pancytopenia, which is chronic as well as multiple other medical problems. He has been seen by medical oncology who is con templating chemotherapy. I was asked to see the patient by Dr. Hardin to discuss if there is any ro le for radiation therapy. He presently denies any pain. He has no weight loss. He feels that he has been eating well. PAST MEDICAL HISTORY: 1. Hypertension. 2. Diabetes. 3. Chronic renal insufficiency. 4. Chronic pancytopenia. 5. 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 6. Hypercholesterolemia. 7. Status post renal biopsy in the past. 8. Status post cataract surgery. MEDICATIONS: Clonidine, Colace, Norvasc, and lactulose. ALLERGIES: CODEINE. SOCIAL HISTORY: The patient lives in [place] with his . He has no cigarette or alcohol use. Lilia arently, he does have a history of alcoholism in the past. FAMILY HISTORY: Negative for malignancy. Multiple family members with hypertension. REVIEW OF SYSTEMS: A 12-point review of systems is otherwise negative. PHYSICAL EXAMINATION: VITAL SIGNS: Height 5 feet 6 inches, weight 148 pounds, blood pressure is 165/94, pulse is 61, respi rations are 18, temperature 97.5, O2 saturation 100%. GENERAL: He is alert and oriented and in no apparent distress. Karnofsky performance status is 80%. He is well-developed and well-nourished. HEENT: Eyes: Cornea is opaque on the left. Sclera bilaterally is markedly icteric. Right pupil is reactive to light. Extraocular movements are intact. ENT: Oral cavity and oropharynx are normal w ithout lesion or erythema. He does have icterus of the mucosa of the palate. Gingiva is intact. Pa late elevates symmetrically. NECK: Supple without preauricular, submandibular, cervical, supraclavicular adenopathy. No thyromeg farzad. Larynx is midline. LUNGS: Breathing nonlabored. Clear to auscultation and percussion. HEART: Regular rate and rhythm without murmur. EXTREMITIES: No lower extremity edema. BACK: Without tenderness on fist percussion of the spine. LYMPHATICS: No axillary or inguinal adenopathy. ABDOMEN: Ascites is mild. Bowel sounds present. Soft, nontender, nondistended without mass. SKIN: Without rash or purpura. NEUROLOGIC: Cranial nerves II through XII grossly intact. Motor strength 5/5 in both upper and lowe r extremities in all muscle groups tested. Gait normal. RADIOLOGIC: MRI of the abdomen was personally reviewed. Again, this suggested a lesion in the bile duct with some extension into the central aspect of the right hepatic lobe. There was ascites presen t. There was prominent splenomegaly. No adenopathy was identified. There were moderate pleural eff usions bilaterally. LABORATORY DATA: Pathology from peritoneal fluid showed adenocarcinoma compatible with bile duct joi oanh. CBC revealed a white blood cell count of 1500 with hemoglobin of 10.4, hematocrit of 32.1, rodrigue telet count 115,000. Chemistry group showed a creatinine of 2.07. Bilirubin was 17.3 with a direct bilirubin greater than 10. Alkaline phosphatase is 251 with AST being 51and ALT being 56. ASSESSMENT: Mr. 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 He has mu ltiple other comorbidities including chronic pancytopenia and chronic splenomegaly. PLAN: I did discuss with Mr. Myles his diagnosis and explained his pathology to him. We then disc ussed possible treatment options. He is not a candidate for surgery because of the peritoneal spread of his disease and the location of his primary tumor. Unfortunately, I do not think he would benefi t from radiation therapy. I think radiation therapy would be unlikely to relieve his obstruction. A dditionally, with the peritoneal spread of his disease. I think his prognosis is quite poor and I th ink that radiation therapy would not affect the already systemic spread of his disease. Thus, system ic chemotherapy would likely be his best option. However, as I understand that his options with this may be limited as well. Certainly his pancytopenia is going to affect his ability to receive chemot herapy also. I would defer that to Dr. Hardin. I will discuss the case with Dr. Hardin and he can proceed with chemotherapy if he feels appropriate. Thank you for this interesting consultation.
[2017-01-31] MEDS ORDERED: Amlodipine 5 MG TAB PO SCH (09:00)
== END 2017-01-30 18:40 | disposition home or self-care (01) | DRG 435 ==
LOC: ERS 17:23 → T4-B 19:43
PROVIDERS: ADMIT Internal Medicine; ATTEND Internal Medicine
PROC: 0W9G3ZX Drainage of Peritoneal Cavity, Percutaneous Approach, Diagnostic (ICD-10-PCS; principal; 2017-01-29)
DX: C22.1 Intrahepatic bile duct carcinoma (principal); K83.1 Obstruction of bile duct; R18.0 Malignant ascites; D61.818 Other pancytopenia; E44.0 Moderate protein-calorie malnutrition; E87.2 Acidosis; C78.6 Secondary malignant neoplasm of retroperitoneum and peritoneum; N05.2 Unspecified nephritic syndrome with diffuse membranous glomerulonephritis; R16.1 Splenomegaly, not elsewhere classified; N18.3 Chronic kidney disease, stage 3 (moderate); D64.9 Anemia, unspecified; H54.62 Unqualified visual loss, left eye, normal vision right eye; H40.9 Unspecified glaucoma; M10.9 Gout, unspecified; E78.00 Pure hypercholesterolemia, unspecified; I10 Essential (primary) hypertension; E11.9 Type 2 diabetes mellitus without complications; Z68.24 Body mass index [BMI] 24.0-24.9, adult
CPT/HCPCS: 36415; 36416; 49083; 74181; 76705; 80048; 80074; 80076; 82550; 83516; 83690; 83735; 84100; 84443; 85025; 85060; 86038; 86301; 87070; 87205; 88112; 88305; 89051; J1815; J2405

== ENCOUNTER 2017-02-10 00:21 | Inpatient (IN) | payer MEDICARE, MEDICAID ==
[2017-02-10] MEDS ORDERED: Sodium Chloride 0.9% 1,000 ML IV SCH ×2 (02:24→06:00)
[2017-02-10] MEDS ORDERED: Ondansetron HCl/PF 4 MG/2 ML Vial IVP PRN (02:24)
[2017-02-10] MEDS ORDERED: Ondansetron ODT 4 MG TAB SL PRN (02:24)
[2017-02-10] MEDS ORDERED: Morphine 4 MG/ML VIAL IV PRN ×2 (02:25→02:26)
[2017-02-10 02:47] VITALS: BMI 22.6
--- NOTE | 2017-02-10 06:18 | PDOC.EVN ---
Event Note - Event Note Event Note: [id number] H&P Dictated 1. Obstructive jaundice 2. htn 3. lIVER MALIGNANCY 4. NAUSEA + PAIN PLAN: SEE ORDERS
[2017-02-10 06:40] LABS: #Lymphocytes 0.3 thou/uL (1.20-3.40); #Monocytes 0.2 thou/uL (0.11-0.59); #Neutrophils 1.4 thou/uL (1.40-6.50); %Eosinophils 0.6 % (0.0-10.0); %Monocytes 8.9 % (0.0-10.0); Hematocrit 35.9 % (42.0-52.0); Mean Platelet Volume 4.8 fL (7.4-10.4); Red Blood Cell (RBC) Count 4.18 mill/uL (4.70-6.10); White Blood Cell (WBC) Count 1.9 thou/uL (4.8-10.8)
[2017-02-10 06:52] LABS: ALT (SGPT) 25 U/L (8-55); AST (SGOT) 41 U/L (5-34); Alkaline Phosphatase 208 U/L (40-150); Anion Gap 12 mmol/L (10-20); BUN (Urea Nitrogen) 22 mg/dL (8.4-25.7); Calc. Creatinine Clearance 23 mL/min (70-130); Calcium 9.4 mg/dL (7.8-10.44); Carbon Dioxide 22 mmol/L (23-31); Chloride 107 mmol/L (98-107); Estimated GFR-MDRD 32; Globulin 3.3 g/dL (2.4-3.5); Protein, Total 6.2 g/dL (5.8-8.1)
[2017-02-10 07:02] LABS: Bilirubin, Total 28.1 mg/dL (0.2-1.2)
--- NOTE | 2017-02-10 07:22 | HP ---
DATE OF ADMISSION: 02/10/2017 CHIEF COMPLA DATE OF ADMISSION: 02/10/2017 CHIEF COMPLAINT: Abdominal pain. HISTORY OF PRESENT ILLNESS: Patient is 81 years old male with past medical history of liver mass, cu rrently not on chemo, recently diagnosed hypertension, now came to the outside ER because of his abdo alla pain. Abdominal pain started over last few days, but got worse yesterday, right side abdomen, constant pain, moderate to severe in intensity, improved with pain medication, associated with episod es of vomiting also, so patient went to outside ER. In the outside ER, the patient was found to have bilirubin level of 29.2, so patient was transferred to the ER. Upon ER arrival, the patient was adm itted to the floor. Patient denies any chest pain, denies any trouble breathing currently. PAST MEDICAL HISTORY: As per HPI. PAST SURGICAL HISTORY: None. SOCIAL HISTORY: Denies smoking, denies alcohol, denies any drugs. FAMILY HISTORY: Positive for heart problems. MEDICATIONS: Reviewed. REVIEW OF SYSTEMS: Constitutional: Denies fever. Denies any chills. Eyes: Positive for icterus. Neck: Denies any neck pain. Cardiovascular: Denies any chest pain. Denies any palpitations. Res piratory: Denies any cough, denies sputum production. Gastrointestinal: Positive for abdominal belen n. Psychiatric: Denies anxiety. Cranial Nerve System: Denies syncope. Genitourinary: Denies dys uria. Gastrointestinal: Positive for abdominal pain. Positive for nausea, vomiting. All other rev iew of systems are reviewed and are negative. PHYSICAL EXAMINATION: CONSTITUTIONAL/VITAL SIGNS: At the time of H and P performed, temperature 96.6, heart rate 76, respi ratory 16, blood pressure is 148/83. GENERAL APPEARANCE: Patient appears comfortable. HEENT: Pupils equal, round, and reactive. Anterior nares patent. CARDIOVASCULAR SYSTEM: S1, S2 present. Regular rate and rhythm. No murmurs, no rubs, no gallops. RESPIRATORY SYSTEM: No wheezing, no rhonchi. GASTROINTESTINAL: Abdomen is mild tender to palpate right upper quadrant. No guarding, no rebound t enderness. PSYCHIATRIC: Mood appropriate at this time. LABORATORY DATA: At the time of H and P performed, sodium is 137, potassium 3.7, chloride 106, CO2 o f 17, BUN of 22, creatinine 2.40. Lactic acid is 0.9, calcium 8.9, total bilirubin 29.2, direct bili gutierrez greater than 10. Urine is positive for protein 100, blood trace, nitrite negative. White coun t 3.7, hemoglobin 11.8, platelet count is 167. ASSESSMENT AND PLAN: The patient is 81 years old male. 1. Obstructive jaundice. Plan to consult GI to evaluate the patient. Possible stent placement this morning. We will keep the patient n.p.o. 2. Liver malignancy. Plan to consult Hematology and Oncology to evaluate the patient. Continue cur rent treatment. 3. Acute kidney injury plus metabolic acidosis. Continue on IV fluids, might have some component of acute tubular necrosis from hyperbilirubinemia. We will go ahead and consult Nephrology to evaluate the patient. Repeat BMP. 4. Pain. Nausea, vomiting. P.r.n. pain meds and p.r.n. antiemetics. The case was discussed with the patient.
[2017-02-10 08:26] VITALS: BP 185/91
[2017-02-10 08:48] VITALS: TEMP 97.7
[2017-02-10] MEDS ORDERED: cloNIDine 0.1 MG TAB PO SCH (09:00)
[2017-02-10] MEDS ORDERED: Amlodipine 5 MG TAB PO SCH (09:00)
[2017-02-10] MEDS ORDERED: Docusate 100 MG CAP PO SCH (09:00)
[2017-02-10] MEDS ORDERED: Famotidine 20 MG TAB PO SCH (09:00)
--- NOTE | 2017-02-10 11:40 | CON ---
DATE OF CONSULTATION: 02/10/2017 REASON FOR CONSULTATION: Adenocarcinoma. HISTORY OF PRESENT ILLNESS: Mr. Myles is a pleasant 81-year-old -[place] male, who was new ly diagnosed with cholangiocarcinoma. He presented with painless jaundice associated with dark urine and pruritus. Liver function studies showed a bilirubin of 17. Imaging performed at the last hospi talization included an abnormal MRI, which showed a mass in the caudate lobe of the liver. It was as sociated with intrahepatic biliary ductal dilation. The common bile duct and pancreatic duct were no rmal. The gallbladder was decompressed. There was splenomegaly as well as moderate ascites. He had a GI consultation and ERCP as well as EUS with biopsy were thought to be technically impossible. We did obtain an ultrasound guided paracentesis. The fluid was positive for adenocarcinoma consistent with bile duct origin. He has had a poor appetite with a significant weight loss as well as elevated bilirubin. He saw Dr. Antonio for possible radiation of the tumor and it was felt that it would be fu gertrudise. He did see Dr. Hardin in the office. Given his marginal performance status and relative resi stance of this tumor to treatment, it was felt that hospice was the most favorable option. Family wa s favoring this approach but decided to discuss it with family at home. Yesterday, he presented to [facility] emergency room with abdominal pain, nausea, and vomiting. His creatinine was elevated, felt he wa s dehydrated. He was started on IV fluids and admitted for further evaluation. PAST MEDICAL HISTORY: 1. 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 2. Diabetes mellitus 2. 3. Chronic pancytopenia. 4. Chronic kidney disease. 5. Hypertension. 6. Hyperlipidemia. 7. Gout. 8. History of alcoholism. 9. Left eye blindness. PAST SURGICAL HISTORY: 1. Renal biopsy in 2014 2. Cataract surgery. 3. EGD and colonoscopy. 4. Recent paracentesis. ALLERGIES: CODEINE. HOME MEDICATIONS: 1. Amlodipine 5 mg daily. 2. Klonopin 0.1 mg daily. 3. Colace 100 mg daily. FAMILY HISTORY: No history of malignancy. SOCIAL HISTORY: , has 11 children. No alcohol, tobacco, or illicit drug use. REVIEW OF SYSTEMS: CONSTITUTIONAL: No fever, chills, night sweats. Positive for poor appetite and weight loss. EYES: Positive for blurred vision. ENT: No pain, hoarseness, sore throat, or dysphagia. CARDIOVASCULAR: No chest pain, palpitations or syncope. RESPIRATORY: No shortness breath, dyspnea on exertion or orthopnea. GI: Positive for nausea, vomiting, and abdominal pain. GENITOURINARY: No dysuria or hematuria. MUSCULOSKELETAL: Positive for joint pain. SKIN: Positive for pruritus. NEUROLOGIC: Denies weakness, headache, numbness, tingling or seizure activity. PSYCHIATRIC: No anxiety or depression. PHYSICAL EXAMINATION: VITAL SIGNS: Temperature is 97.7, pulse is 62, respiratory rate 16, BP is 185/91. He is 99% on room air. GENERAL: Well-developed, well-nourished male, in no acute distress. HEENT: Normocephalic, atraumatic. He has marked scleral icterus, left corneal opacity. NECK: Supple without JVD or mass. CARDIOVASCULAR: Regular rate and rhythm. LUNGS: Clear. ABDOMEN: Soft, nontender. He does have ascites. EXTREMITIES: No clubbing, cyanosis or edema. SKIN: No rash. HEMATOLOGIC: No petechia or purpura. NEUROLOGICAL: Nonfocal. PSYCHIATRIC: The patient is alert and oriented and appropriate. PERTINENT LABORATORY AND X-RAYS: Current WBCs are 1.9, hemoglobin 11.8, hematocrit 35.9, platelet co unt 128,000. Sodium 137, potassium 3.6, chloride 107, CO2 is 22, BUN is 22, creatinine 2.37, calcium is 9.4, total bilirubin is 28.1, AST is 41, ALT is 25, alkaline phosphatase is 208, serum total prot ein is 6.2, albumin 2.9, globulin 3.3. Abdominal pelvis CT showed a high grade biliary obstruction w ith moderate ascites. Interval increase in bilateral pleural effusions and chronic splenomegaly. IMPRESSION: 1. Stage 4 adenocarcinoma of the proximal biliary system. 2. Hyperbilirubinemia secondary to #1. 3. Acute on chronic kidney injury. DISCUSSION: Hospice was discussed with patient and his multiple children at bedside. All are in agr eement that hospice at home is the best course of action for this patient. I will ask case liner t o offer various hospice options. He would like to go home today if possible. I will advance his t as there are no further procedures planned, and we will continue pain and nausea medications. Thank you for the consult.
[2017-02-11] MEDS ORDERED: Heparin 5,000 UNITS/ML VIAL SC SCH (09:00)
[2017-02-11] MEDS ORDERED: FLU VACC TS2017-18 (>65YR) 0.5 ML SYRINGE IM ONE (09:00)
== END 2017-02-10 17:07 | disposition hospice, home (50) | DRG 444 ==
LOC: ERS 00:21 → ONC 01:42
PROVIDERS: ADMIT Internal Medicine; ATTEND Internal Medicine
DX: K83.1 Obstruction of bile duct (principal); N17.0 Acute kidney failure with tubular necrosis; R18.0 Malignant ascites; E87.2 Acidosis; C22.1 Intrahepatic bile duct carcinoma; D61.818 Other pancytopenia; R16.1 Splenomegaly, not elsewhere classified; E11.22 Type 2 diabetes mellitus with diabetic chronic kidney disease; E86.0 Dehydration; N18.9 Chronic kidney disease, unspecified; Z51.5 Encounter for palliative care; I12.9 Hypertensive chronic kidney disease with stage 1 through stage 4 chronic kidney disease, or unspecified chronic kidney disease; E78.5 Hyperlipidemia, unspecified; M10.9 Gout, unspecified; F10.20 Alcohol dependence, uncomplicated; H54.40 Blindness, one eye, unspecified eye; R63.4 Abnormal weight loss
CPT/HCPCS: 36415; 80053; 85025; 99285; A4216